=== PATIENT | female | born 1980 | race Caucasian/White ===

== ENCOUNTER → 2017-02-04 | Outpatient (CLI) | payer OTHER, BC ==
[~2017-02-04] MED LIST: LORTAB 5/500 501 TAB PO; NAPROSYN PO; NO HOME MEDICATIONS; PRENATAL1 TA1 PO
== END ==
LOC: MC.RAD 07:00
DX: Z12.31 Encounter for screening mammogram for malignant neoplasm of breast (principal)

== ENCOUNTER → 2018-11-28 | Outpatient (CLI) | payer OTHER, BC | LOC: MC.RAD 10:48 | DX: Z12.31 Encounter for screening mammogram for malignant neoplasm of breast (principal) ==

== ENCOUNTER 2024-04-20 05:54 | Day surgery (SDC) | payer BC ==
[~2024-04-20] VITALS: Ht 165.1 cm; Wt 98.7 kg
[~2024-04-20 05:54] MED LIST changes: +LR 1,000 ML IV SCH; +MOUNJARO12.5 MG/0. SQ; +NORCO 325 MG-51 TAB PO; +Ondansetron 4 MG/2 ML VIAL IV PRN; +SYNTHROID0.1 MG/TAB; +WELLBUTRIN XL150 MG PO
[2024-04-20 06:37] VITALS: BP 112/82; PULSE 81; TEMP 98
[2024-04-20] MEDS ORDERED: Lidocaine PF 2% (20 MG/ML) 5 ML VIAL ONE (07:14)
[2024-04-20] MEDS ORDERED: Glycopyrrolate 0.2 MG/ML 1 ML VIAL ONE (07:14)
[2024-04-20 08:00] VITALS: BP 102/79; PULSE 76; TEMP 97.5
[2024-04-20 08:15] VITALS: BP 109/72; PULSE 76
[2024-04-20 08:25] VITALS: BP 110/70; PULSE 76
--- NOTE | 2024-04-20 08:35 | NUR ---
0800 RETURNS TO ROOM 1 PER CART. AWAKE, ALERT. RESP UNLABORED. AMBULATES TO RECLINER WITH STANDBY ASSIST. DENIES NAUSEA OR ABD PAIN. VITAL SIGNS OBTAINED. CALL LIGHT AT SIDE. IN ROOM 0812 DR JONES HERE TO SEE PATIENT. 0815 TOLERATES PO JUICE WITHOUT NAUSEA. DISCHARGE INSTRUCTIONS REVIEWED. PATIENT VERBALIZES UNDERSTANDING. COPY PROVIDED IN DISCHARGE [id number] DRESSES SELF
== END 2024-04-20 08:35 | disposition home or self-care (01) ==
LOC: SDCO 05:54
DX: Z12.11 Encounter for screening for malignant neoplasm of colon (principal)
CPT/HCPCS: J2704; J7120